=== PATIENT | female | born 1995 | race African-American/Black ===

== ENCOUNTER 2017-02-25 20:43 | Emergency (ER) | payer OTHER ==
[2017-02-25 20:48] VITALS: BMI 30.9
[2017-02-25] MEDS ORDERED: KETOROLAC TROMETHAMINE 60 MG/2 ML VIAL IM ONE (21:45)
--- NOTE | 2017-02-25 21:55 | PDOC ---
History of Present Illness - General History Source: Patient Exam Limitations: No Limitations - History of Present Illness Initial Comments: 02/25/17 21:49 The patient is a 21F with no significant PMH who presents to the ED with complaints of L arm pain. She states that she had breast surgery 4-6 years ago and since then has experienced pain in her L breast which radiates to her arm. She describes the pain as a sharp pressure, starting ni her breast and going down her L arm down to her wrist. She also describes cramps with breathing. The pain has been going on for 1 year, but over the past 2 weeks it has been worsening and constant. LMP was 2 days ago. ROS+: weakness, numbness, tingling, chills, nausea, stressors, back pain ( unrelated), headache (unrelated), increased appetite, SOB w/ pain ROS-: fever, vomiting, night sweats, cough, wheezing, dysuria Allergies: shellfish Social: Drinks socially, no smoking or drugs Surgery: as per HPI <Giovani Landry - Last Filed: 02/25/17 22:17> <Reginaldo Jaffe - Last Filed: 02/26/17 00:31> - General Chief Complaint: Pain Stated Complaint: CHEST PAIN Time Seen by Provider: 02/25/17 21:02 Past History - Psycho/Social/Smoking Cessation Hx Suicidal Ideation: No Smoking History: Never smoked <Giovani Landry - Last Filed: 02/25/17 22:17> <Reginaldo Jaffe - Last Filed: 02/26/17 00:31> - Past Medical History Allergies/Adverse Reactions: Allergies Allergy/AdvReac Type Severity Reaction Status Date / Time No Known Allergies Allergy Verified 02/25/17 20:49 Review of Systems - Review of Systems Able to Perform ROS?: Yes Is the patient limited Syriac proficient: No Constitutional: Yes: Chills, Other (Increased appetite). No: Fever, Night Sweats Respiratory: Yes: Shortness of Breath (due to pain on deep inhalation). No: Cough, Productive cough Cardiac (ROS): Yes: Chest Pain ABD/GI: Yes: Nausea. No: Constipated, Diarrhea, Vomiting : No: Dysuria, Discharge Musculoskeletal: Yes: Back Pain (baseline), Muscle Pain Integumentary: No: Bruising, Change in Color, Lesions Neurological: Yes: Headache (unrelated), Numbness, Paresthesia, Tingling Psychiatric: Yes: Change in Appetite (increased) <Giovani Landry - Last Filed: 02/25/17 22:17> *Physical Exam - Vital Signs Last Vital Signs Temp Pulse Resp BP Pulse Ox 99.0 F 94 H 18 147/100 99 02/25/17 20:45 02/25/17 20:45 02/25/17 20:45 02/25/17 20:45 02/25/17 20:45 - Physical Exam General Appearance: Yes: Appropriately Dressed, Mild Distress, Obese HEENT: positive: Normal Voice, Hearing Grossly Normal. negative: Scleral Icterus (R), Scleral Icterus (L) Respiratory/Chest: positive: Chest Tender, Lungs Clear, Normal Breath Sounds, Other (Tenderness to palpation on L lateral chest wall, down axilla and up to elbow). negative: Respiratory Distress, Accessory Muscle Use Cardiovascular: positive: Regular Rate, S1, S2. negative: Bradycardia, Tachycardia Gastrointestinal/Abdominal: positive: Flat, Soft. negative: Tender, Tenderness Lymphatic: negative: Adenopathy Musculoskeletal: negative: CVA Tenderness, CVA Tenderness (R), CVA Tenderness (L ) Extremity: positive: Normal Inspection, Tender (L arm was TT deep palpation). negative: Swelling Integumentary: positive: Dry, Warm. negative: Jaundice, Diaphoresis Neurologic: positive: Fully Oriented, Normal Mood/Affect, Normal Response <Giovani Landry - Last Filed: 02/25/17 22:17> - Vital Signs Last Vital Signs Temp Pulse Resp BP Pulse Ox 99.0 F 94 H 18 147/100 99 02/25/17 20:45 02/25/17 20:45 02/25/17 20:45 02/25/17 20:45 02/25/17 20:45 <Reginaldo Jaffe - Last Filed: 02/26/17 00:31> Heart Score/ECG Review - ECG Impressions Normal ECG: Yes Non-specific ST Elevation: No Ischemic Changes: No <Giovani Landry - Last Filed: 02/25/17 22:17> - ECG Intrepretation Comment:: 02/26/17 00:30 80, normal sinus with sinus arrhythmia, axis-within normal limit, no ST-T abnormalities, negative voltage criteria for LVH, DE/QRS/QT C-within normal limit, normal EKG. <Reginaldo Jaffe - Last Filed: 02/26/17 00:31> ED Treatment Course - RADIOLOGY Radiology Studies Ordered: Category Date Time Status CXRPORT [CHEST X-RAY PORTABLE*] [RAD] Stat Radiology 02/25/17 21:44 Ordered <Giovani Landry - Last Filed: 02/25/17 22:17> - ADDITIONAL ORDERS Additional order review: Laboratory Results 02/25/17 21:45 Urine HCG, Qual Negative - Medications Given in the ED: ED Medications Discontinued Medications Generic Name Dose Route Start Last Admin Trade Name Freq PRN Reason Stop Dose Admin Ketorolac Tromethamine 60 mg 02/25/17 21:45 02/25/17 23:15 Toradol Injection - IM 02/25/17 21:46 60 mg ONCE ONE Administration <Reginaldo Jaffe - Last Filed: 02/26/17 00:31> Medical Decision Making - Medical Decision Making 02/25/17 22:08 Patient is a 21 F with no PMH who presents to the ED with L chest and arm pain. The diagnosis is likely musculoskeletal but other diagnoses can be recurrent breast cysts, axillary nerve inflammation, pneumothorax, and pericarditis. I have ordered an EKG, CXR and pain control with toradol. I will reevaluate the patient after the results come in. 02/25/17 22:17 Patient signed out to Dr. Jaffe. <Giovani Landry - Last Filed: 02/25/17 22:17> *DC/Admit/Observation/Transfer - Attestations Physician Attestion: 02/25/17 22:09 I, Dr. Giovani Landry, attest that this document has been prepared under my direction and personally reviewed by me in its entirety. I further attest, that it accurately reflects all work, treatment, procedures and medical decision -making performed by me. <Giovani Landry - Last Filed: 02/25/17 22:17> <Reginaldo Jaffe - Last Filed: 02/26/17 00:31> Diagnosis at time of Disposition: Chest wall pain - Discharge Dispostion Disposition: HOME Condition at time of disposition: Stable - Referrals Referrals: Alessandro Tran MD [Staff Physician] - - Patient Instructions Printed Discharge Instructions: DI for Atypical Chest Pain
[2017-02-25] MEDS ORDERED: KETOROLAC TROMETHAMINE 60 MG/2 ML VIAL ONE (23:43)
--- NOTE | 2017-02-26 00:25 | PDOC ---
Attending Attestation - Resident Resident Name: Giovani Landry - ED Attending Attestation I have performed the following: I have examined & evaluated the patient, The case was reviewed & discussed with the resident, I agree w/resident's findings & plan, Exceptions are as noted - HPI HPI: 02/26/17 00:22 Patient is a 21-year-old female who presents with atraumatic left breast and left upper chest pain radiating to the left arm that has recurred over the past several years but has increased in severity over the past 2 weeks. Patient denies shortness of breath/fever/chills/nausea/vomiting/lower extremity edema. - Physicial Exam PE: 02/26/17 00:22 Patient is awake and alert, afebrile, hemodynamically stable. There is reproducible left upper chest tenderness to palpation. Lungs are clear to auscultation, there is no rash. - Medical Decision Making 02/26/17 00:25 EKG shows no evidence of acute ischemia or right sided heart strain. Chest x- ray reveals no evidence of pneumothorax or cardiomegaly. I do not suspect ACS at this time. Patient can be ruled out for PE using the Perc rule. Patient's symptoms may related to previously formed scar tissue. Patient reports improvement after administration of Toradol. Will discharge with breast surgery follow-up.
[2017-02-26 00:48] VITALS: BP 138/97; PULSE 87; TEMP 98.8
--- NOTE | 2017-02-26 11:21 | EKG ---
Test Reason : Blood Pressure : / mmHG Vent. Rate : 080 BPM Atrial Rate : 080 BPM P-R Int : 130 ms QRS Dur : 082 ms QT Int : 386 ms P-R-T Axes : 059 058 051 degrees QTc Int : 445 ms NORMAL SINUS RHYTHM WITH SINUS ARRHYTHMIA NORMAL ECG NO PREVIOUS ECGS AVAILABLE Confirmed by HANH NUNES, DARLING ([id number]) on 02/26/2017 11:21:20 AM Referred By: Confirmed By:DARLING SCHAFER MD
== END 2017-02-26 00:48 | disposition home or self-care (01) ==
LOC: JER 20:43
PROC: 3E0233Z Introduction of Anti-inflammatory into Muscle, Percutaneous Approach (ICD-10-PCS; principal; 2017-02-25)
DX: R07.89 Other chest pain (principal)
CPT/HCPCS: 71010-TC; 84703; 93005; 93010; 99283-25

== ENCOUNTER 2017-06-11 09:28 | Emergency (ER) | payer OTHER ==
[2017-06-11 09:40] VITALS: BMI 29.6
[2017-06-11] MEDS ORDERED: ONDANSETRON 4 MG/2 ML VIAL IVPUSH ONE (11:23)
[2017-06-11] MEDS ORDERED: SODIUM CHLORIDE 1,000 ML IV STA (11:23)
[2017-06-11] MEDS ORDERED: ONDANSETRON 4 MG/2 ML VIAL ONE (11:34)
[2017-06-11 12:06] LABS: BASOPHIL 0.4 % (0-2.0); MCHC 32.9 g/dl (32.0-36.0); MEAN PLT VOLUME 8.9 fl (7.5-11.1); NEUTROPHILS 57.9 % (42.8-82.8); PLATELET COUNT 341 K/MM3 (134-434); RDW 13.3 % (11.6-15.6); WHITE BLOOD COUNT 5.6 K/mm3 (4.0-10.0)
[2017-06-11 12:13] LABS: URINE APPEARANCE CLOUDY; URINE BILIRUBIN NEGATIVE (NEGATIVE); URINE BLOOD 1+ (NEGATIVE); URINE COLOR DKYELLOW; URINE GLUCOSE (UA) NEGATIVE (NEGATIVE); URINE KETONE NEGATIVE (NEGATIVE); URINE NITRITE NEGATIVE (NEGATIVE); URINE PROTEIN NEGATIVE (NEGATIVE)
[2017-06-11 12:22] LABS: URINE MUCUS MANY; URINE RBC 4 /hpf (0-3); URINE WBC 5 /hpf (3-5)
--- NOTE | 2017-06-11 12:29 | PDOC ---
History of Present Illness - General Chief Complaint: Pain, Acute Stated Complaint: PAIN Time Seen by Provider: 06/11/17 11:12 History Source: Patient Exam Limitations: No Limitations - History of Present Illness Travel History: No Initial Comments: 06/11/17 12:00 22-year-old female presents to the emergency room for evaluation of lower abdominal cramping associated with diarrhea and mild nausea. Patient denies irregular menses, recent travel, recent illness, recent sick contacts, history of GI disorders, recent UTI, recent antibiotic use. Patient denies drug and alcohol use. Timing/Duration: reports: getting worse Quality: reports: mild, cramping Abdominal Pain Onset Location: reports: LLQ Pain Radiation: reports: periumbilical Activities at Onset: reports: none Aggravating Factors: improves with: None Alleviating Factors: improves with: None Past History - Travel Traveled outside of the country in the last 30 days: No Close contact w/someone who was outside of country & ill: No - Past Medical History Allergies/Adverse Reactions: Allergies Allergy/AdvReac Type Severity Reaction Status Date / Time shellfish derived Allergy Verified 06/11/17 09:37 Home Medications: Ambulatory Orders NK [No Known Home Medication] 06/11/17 Other medical history: DENIES. - Suicide/Smoking/Psychosocial Hx Smoking History: Never smoked Patient Lives Alone: No Lives with/in: spouse/SO Abd/GI Specific PMHX - Complaint Specific PMHX Colitis: No Diverticulitis: No Review of Systems - Review of Systems Able to Perform ROS?: No Is the patient limited Palauan proficient: No Constitutional: Yes: Weakness HEENTM: No: Symptoms Reported Respiratory: No: Symptoms reported Cardiac (ROS): No: Symptoms Reported ABD/GI: Yes: Diarrhea, Nausea, Vomiting, Abdominal cramping. No: Poor Appetite , Poor Fluid Intake : No: Symptoms Reported Musculoskeletal: No: Symptoms Reported Integumentary: No: Symptoms Reported Neurological: No: Symptoms reported Endocrine: No: Symptoms Reported Hematologic/Lymphatic: No: Symptoms Reported *Physical Exam - Vital Signs Last Vital Signs Temp Pulse Resp BP Pulse Ox 98.3 F 93 H 19 114/68 98 06/11/17 09:37 06/11/17 09:37 06/11/17 09:37 06/11/17 09:37 06/11/17 09:37 - Physical Exam General Appearance: Yes: Nourished, Appropriately Dressed. No: Apparent Distress HEENT: negative: Pale Conjunctivae Neck: positive: Normal Thyroid, Supple Respiratory/Chest: positive: Lungs Clear, Normal Breath Sounds. negative: Respiratory Distress, Accessory Muscle Use Cardiovascular: positive: Regular Rhythm, Regular Rate. negative: Murmur Gastrointestinal/Abdominal: positive: Soft, Tenderness (llq, no lt suprapubic) Musculoskeletal: negative: CVA Tenderness Extremity: positive: Normal Capillary Refill Integumentary: positive: Normal Color, Warm, Moist Neurologic: positive: Motor Strength 5/5 (ambulatory) ED Treatment Course - LABORATORY CBC & Chemistry Diagram: 06/11/17 11:20 06/11/17 11:20 - ADDITIONAL ORDERS Additional order review: Laboratory Results 06/11/17 11:20 Urine Color Dkyellow Urine Appearance Cloudy Urine pH 5.0 Urine Protein Negative Urine Glucose (UA) Negative Urine Ketones Negative Urine Blood 1+ H Urine Nitrite Negative Urine Bilirubin Negative Urine Urobilinogen 2.0 H Urine HCG, Qual Negative 06/11/17 11:20 RBC 4.71 MCV 85.0 MCHC 32.9 RDW 13.3 MPV 8.9 Neutrophils % 57.9 Lymphocytes % 34.6 Monocytes % 6.1 Eosinophils % 1.0 Basophils % 0.4 - Medications Given in the ED: ED Medications Discontinued Medications Generic Name Dose Route Start Last Admin Trade Name Freq PRN Reason Stop Dose Admin Ondansetron HCl 4 mg 06/11/17 11:23 06/11/17 11:40 Zofran Injection IVPUSH 06/11/17 11:24 4 mg ONCE ONE Administration Medical Decision Making - Medical Decision Making 06/11/17 13:18 . Patient with complaints of lower abdominal pain and nausea. Patient exam had left lower quadrant left suprapubic pain. Patient ordered for labs, urine urine and Zofran.Will order an ultrasound once labs are resulted. 06/11/17 15:20 Laboratory Tests 06/11/17 11:20 Urine WBC 5 Laboratory Tests 06/11/17 06/11/17 06/11/17 11:20 11:20 11:20 WBC 5.6 Hgb 13.2 Hct 40.1 Plt Count 341 Neutrophils % 57.9 Sodium 139 Potassium 3.9 Chloride 105 Carbon Dioxide 27 Anion Gap 7 L BUN 9 Creatinine 0.7 Random Glucose 84 Calcium 8.6 Magnesium 2.2 Total Bilirubin 0.3 AST 11 L ALT 19 Alkaline Phosphatase 75 Total Protein 7.5 Albumin 3.8 Urine Ketones Negative Urine Blood 1+ H Urine Nitrite Negative Urine Bilirubin Negative Ur Leukocyte Esterase Pending Urine RBC 4 Urine WBC 5 Urine HCG, Qual Negative Ultrasound negative for acute finding. Patient states is feeling better. Patient be discharged home with recommendations to follow-up with her primary care physician and take Zofran as needed for nausea. 06/11/17 15:22 *DC/Admit/Observation/Transfer Diagnosis at time of Disposition: Lower abdominal pain - Discharge Dispostion Disposition: HOME Condition at time of disposition: Improved - Patient Instructions Printed Discharge Instructions: DI for Abdominal Pain-Adult Additional Instructions: Please take Motrin or Tylenol for discomfort and take Zofran as needed for nausea. Please up with her primary care physician and if your symptoms worsen please go to the nearest emergency room.
[2017-06-11 12:37] LABS: ALBUMIN 3.8 g/dl (3.4-5.0); ALK PHOS 75 U/L (45-117); ANION GAP 7 (8-16); BILIRUBIN,TOTAL 0.3 mg/dL (0.2-1.0); CALCIUM 8.6 mg/dL (8.5-10.1); CO2 27 mmol/L (21-32); CREATININE 0.7 mg/dL (0.55-1.02); GLUCOSE,RANDOM 84 mg/dL (74-106); MAGNESIUM 2.2 mg/dL (1.8-2.4); SGOT/AST 11 U/L (15-37); SGPT/ALT 19 U/L (12-78); TOT PROT 7.5 g/dl (6.4-8.2)
[2017-06-11] MEDS ORDERED: KETOROLAC TROMETHAMINE 30 MG/1 ML VIAL IVPUSH ONE (12:45)
[2017-06-11] MEDS ORDERED: KETOROLAC TROMETHAMINE 30 MG/1 ML VIAL ONE (12:59)
[2017-06-11 16:00] VITALS: BP 107/76; PULSE 76; TEMP 97.8
[2017-06-11 16:14] LABS: URINE LEUK ESTERASE Negative (NEGATIVE)
== END 2017-06-11 15:45 | disposition home or self-care (01) ==
LOC: JER 09:28
PROC: 3E0333Z Introduction of Anti-inflammatory into Peripheral Vein, Percutaneous Approach (ICD-10-PCS; principal; 2017-06-11)
DX: R10.30 Lower abdominal pain, unspecified (principal)
CPT/HCPCS: 36415; 76830-TC; 76856-TC; 80053; 81003; 81015; 83735; 84703; 85025; 99283-25

== ENCOUNTER 2017-09-13 10:22 | Emergency (ER) | payer OTHER ==
[2017-09-13 11:00] VITALS: BP 113/83; PULSE 115; TEMP 100.9; BMI 29.1
[2017-09-13] MEDS ORDERED: IBUPROFEN 600 MG TABLET (FP) PO ONE ×2 (11:26→11:29)
[2017-09-13] MEDS ORDERED: ALBUTEROL SO4 0.083% IH SOL 2.5 MG/3 ML VIAL.NEB. NEB ONE ×2 (11:26→11:29)
--- NOTE | 2017-09-13 11:51 | PDOC ---
History of Present Illness - General Chief Complaint: Cold Symptoms Stated Complaint: SOB Time Seen by Provider: 09/13/17 11:15 History Source: Patient Exam Limitations: No Limitations - History of Present Illness Initial Comments: 09/13/17 11:27 c/o shortness of breath with coughing and pain to the chest for one day started suddenly yesterday with fever, body aches. no sore throat. Severity: reports: moderate Associated Symptoms: reports: cough, fever/chills Past History - Past Medical History Allergies/Adverse Reactions: Allergies Allergy/AdvReac Type Severity Reaction Status Date / Time shellfish derived Allergy Verified 09/13/17 10:58 Home Medications: Ambulatory Orders Albuterol Sulfate Inhaler - [Ventolin HFA Inhaler -] 1 - 2 inh PO Q4H #1 inhaler 09/13/17 Benzonatate [Tessalon Pearls -] 100 mg PO TID #21 capsule 09/13/17 COPD: No - Suicide/Smoking/Psychosocial Hx Smoking History: Never smoked Have you smoked in the past 12 months: No Information on smoking cessation initiated: No Hx Alcohol Use: No Drug/Substance Use Hx: No Substance Use Type: None Respiratory Specific PMHX - Complaint Specific PMHX Angina: No Bronchitis: No Pneumonia: No Pulmonary Embolus: No TB (Tuberculosis): No Review of Systems - Review of Systems Able to Perform ROS?: Yes Is the patient limited Amharic proficient: No Constitutional: Yes: Symptoms Reported, Fever, Other (body aches) Respiratory: Yes: Cough *Physical Exam - Vital Signs Last Vital Signs Temp Pulse Resp BP Pulse Ox 100.9 F H 115 H 18 113/83 100 09/13/17 10:55 09/13/17 10:55 09/13/17 10:55 09/13/17 10:55 09/13/17 10:55 - Physical Exam General Appearance: Yes: Nourished HEENT: positive: EOMI, MIYA, Normal ENT Inspection Neck: positive: Supple Respiratory/Chest: positive: Lungs Clear, Normal Breath Sounds Cardiovascular: positive: Regular Rhythm, Regular Rate Gastrointestinal/Abdominal: positive: Normal Bowel Sounds, Soft. negative: Tender Musculoskeletal: positive: Normal Inspection Extremity: positive: Normal Capillary Refill, Normal Inspection, Normal Range of Motion Integumentary: positive: Normal Color, Dry, Warm Neurologic: positive: Fully Oriented, Alert, Normal Mood/Affect, Normal Response , Motor Strength 5/5 *DC/Admit/Observation/Transfer Diagnosis at time of Disposition: Viral upper respiratory tract infection with cough - Discharge Dispostion Disposition: HOME Condition at time of disposition: Good - Prescriptions Prescriptions: Albuterol Sulfate Inhaler - [Ventolin HFA Inhaler -] 1 - 2 inh PO Q4H #1 inhaler Benzonatate [Tessalon Pearls -] 100 mg PO TID #21 capsule - Referrals Referrals: Domingo Whelan MD [Staff Physician] - - Patient Instructions Additional Instructions: use the inhaler as directed take tessalon for cough increase vitamin C and Zinc drink pleanty of fluids to stay hydrated take tylenol 650mg every 4-6hrs for fever follow with your medical doctor in 2-3 days return to ER for any worsening symptoms - Post Discharge Activity
== END 2017-09-13 12:35 | disposition home or self-care (01) ==
LOC: JER 10:22 → JERFT 10:22
PROC: 3E0F7GC Introduction of Other Therapeutic Substance into Respiratory Tract, Via Natural or Artificial Opening (ICD-10-PCS; principal; 2017-09-13)
DX: J06.9 Acute upper respiratory infection, unspecified (principal); B97.89 Other viral agents as the cause of diseases classified elsewhere
CPT/HCPCS: 87804; 94640; 99281-25

== ENCOUNTER 2018-03-07 17:11 | Emergency (ER) | payer OTHER ==
[2018-03-07 17:32] VITALS: BP 109/50; PULSE 86; TEMP 98.5; BMI 28.3
[2018-03-07] MEDS ORDERED: KETOROLAC TROMETHAMINE 60 MG/2 ML VIAL IM ONE (17:44)
[2018-03-07] MEDS ORDERED: KETOROLAC TROMETHAMINE 60 MG/2 ML VIAL ONE (17:47)
--- NOTE | 2018-03-07 17:51 | PDOC ---
History of Present Illness - General Chief Complaint: Injury Stated Complaint: PAIN Time Seen by Provider: 03/07/18 17:38 History Source: Patient Exam Limitations: Clinical Condition - History of Present Illness Initial Comments: 03/07/18 17:45 Patient with no sig PMhx present with complains of left elbow and shoulder pains s/p fall. patient report mild pain to top of left shoulder but report severe pain to left elbow. report pain is worse when she extends left elbow Timing/Duration: 24 hours Severity: moderate Modifying Factors: improves with: rest. worse with: movement Associated Symptoms: denies: weakness Aspirin Received prior to arrival: Yes: no aspirin today Past History - Past Medical History Allergies/Adverse Reactions: Allergies Allergy/AdvReac Type Severity Reaction Status Date / Time shellfish derived Allergy Verified 03/07/18 17:32 Home Medications: Ambulatory Orders Methocarbamol [Robaxin -] 500 mg PO BID PRN #14 tablet 03/07/18 Naproxen 500 mg PO BID PRN #20 tablet. 03/07/18 COPD: No - Suicide/Smoking/Psychosocial Hx Smoking History: Never smoked Have you smoked in the past 12 months: No Information on smoking cessation initiated: No Hx Alcohol Use: No Drug/Substance Use Hx: No Substance Use Type: None Review of Systems - Review of Systems Able to Perform ROS?: Yes Is the patient limited Bhutanese proficient: No Constitutional: No: Chills, Diaphoresis, Fever, Loss of Appetite, Malaise, Night Sweats, Weakness, Weight Stable, Unintentional Wgt. Loss, Unexplained wgt Loss, Other HEENTM: No: Eye Pain, Blurred Vision, Tearing, Recent change in vision, Double Vision, Cataracts, Ear Pain, Ocular Prothesis, Ear Discharge, Nose Pain, Nose Congestion, Tinnitus, Nose Bleeding, Hearing Loss, Throat Pain, Throat Swelling , Mouth Pain, Dental Problems, Difficulty Swallowing, Mouth Swelling, Other Respiratory: No: Cough, Orthopnea, Shortness of Breath, SOB with Exertion, SOB at Rest, Stridor, Wheezing, Productive cough, Hemoptysis, Other Cardiac (ROS): No: Chest Pain, Edema, Irregular Heart Rate, Lightheadedness, Palpitations, Syncope, Chest Tightness, Other ABD/GI: No: Abdominal Distended, Abd. Pain w/ defecation, Blood Streaked Bowels , Constipated, Diarrhea, Difficulty Swallowing, Nausea, Poor Appetite, Poor Fluid Intake, Rectal Bleeding, Vomiting, Indigestion, Abdominal cramping, Tarry Stools, Other Musculoskeletal: Yes: Joint Pain (left elbow and shoulder ), Muscle Pain (left shoulder ). No: Back Pain, Joint Stiffness Integumentary: No: Bruising, Change in Color, Change in Hair/Nails, Dryness, Erythema, Flushing, Lesions, Lumps, Pallor, Pruritus, Rash, Sweating, Other Neurological: No: Headache, Numbness, Paresthesia, Pre-Existing Deficit, Seizure , Tingling, Tremors, Weakness, Unsteady Gait, Ataxia, Dizziness, Other Psychiatric: No: Anxiety, Depression, Frequent Crying, Stressors, Sleep Pattern Change, Emotional Problems, Mood Swings, Change in Appetite, Other Hematologic/Lymphatic: No: Anemia, Blood Clots, Easy Bleeding, Easy Bruising, Bleeding Diathesis, Lymph Node Abnormalities, Swollen Glands, Other All Other Systems: Reviewed and Negative *Physical Exam - Vital Signs Last Vital Signs Temp Pulse Resp BP Pulse Ox 98.5 F 86 18 109/50 100 03/07/18 17:29 03/07/18 17:29 03/07/18 17:29 03/07/18 17:29 03/07/18 17:29 - Physical Exam General Appearance: Yes: Nourished, Appropriately Dressed, Mild Distress HEENT: positive: MIYA, Normal ENT Inspection, TMs Normal, Pharynx Normal Neck: positive: Trachea midline, Supple Respiratory/Chest: positive: Lungs Clear, Normal Breath Sounds. negative: Respiratory Distress, Accessory Muscle Use Cardiovascular: positive: Regular Rhythm, Regular Rate Musculoskeletal: positive: Normal Inspection, Other (moderate tenderness over olecranon and lateral side of left elbow. pain worse with extention of left elbow. mild tenderness over left ACjoint and deltoid muscles . FROM of shoulder. pt will not move elbow due to pain) Extremity: positive: Normal Inspection, Tender (left elbow and shoulder ) Integumentary: positive: Normal Color Neurologic: positive: Fully Oriented, Normal Mood/Affect, Normal Response ED Treatment Course - RADIOLOGY Radiology Studies Ordered: Category Date Time Status ELBOW-LEFT [RAD] Stat Radiology 03/07/18 17:42 Ordered SHOULDER-LEFT [RAD] Stat Radiology 03/07/18 17:42 Ordered Medical Decision Making - Medical Decision Making 03/07/18 17:51 patient presenting with left shoulder and elbow pain s/p fall. likely bursitis with shoulder sprain. x-rays of left shoulder and elbow ordered. Toradol 60mg IM for pain. reassess after imaging and good pain control 03/07/18 18:19 x-rays of left shoulder and elbow shows no acute fracture or dislocation. pt stable for home discharge with orthopedics follow-up. left elbow wrapped with 4inches jeniffer wrap *DC/Admit/Observation/Transfer Diagnosis at time of Disposition: Elbow pain, left Contusion of elbow, left Qualifiers: Encounter type: initial encounter Qualified Code(s): S50.02XA - Contusion of left elbow, initial encounter Shoulder pain, left Qualifiers: Chronicity: acute Qualified Code(s): M25.512 - Pain in left shoulder - Discharge Dispostion Disposition: HOME Condition at time of disposition: Stable Decision to Admit order: No - Prescriptions Prescriptions: Methocarbamol [Robaxin -] 500 mg PO BID PRN #14 tablet PRN Reason: shoulder and elbow pains Naproxen 500 mg PO BID PRN #20 tablet.dr CORDOVA Reason: Pain - Referrals Referrals: Jeff Whalen MD [Staff Physician] - - Patient Instructions Additional Instructions: take medications as prescribed. apply heat to left elbow and shoulder three times/ day for 10-15mins as needed for pain. follow-up with orthopedics if symptoms persists - Post Discharge Activity Forms/Work/School Notes: Back to Work
== END 2018-03-07 18:28 | disposition home or self-care (01) ==
LOC: JER 17:11 → JERFT 17:11
PROC: 3E0233Z Introduction of Anti-inflammatory into Muscle, Percutaneous Approach (ICD-10-PCS; principal; 2018-03-07)
DX: S50.02XA Contusion of left elbow, initial encounter (principal); M25.512 Pain in left shoulder; W18.39XA Other fall on same level, initial encounter; Y93.89 Activity, other specified; Y92.89 Other specified places as the place of occurrence of the external cause; Y99.8 Other external cause status
CPT/HCPCS: 73030-TC-LT-FY; 73070-TC-LT-FY; 96372; 99281-25